=== PATIENT | male | born 1945 | race Caucasian/White ===

== ENCOUNTER → 2020-10-01 | Outpatient (CLI) | payer MEDICARE, OTHER ==
--- NOTE | 2020-10-01 13:24 | RADIOLOGY REPORT (SQ) ---
EXAM DESCRIPTION: BARIUM SWALLOW ESOPHAGUS IMAGES COMPLETED DATE/TIME: 10/01/2020 10:05 am REASON FOR STUDY: R13.10 DYSPHAGIA, UNSPECIFIED R13.10 DYSPHAGIA, UNSPECIFIED COMPARISON: None. TECHNIQUE: Under fluoroscopic guidance, patient ingested effervescent granules followed by thick and thin barium. Fluoroscopic spot images and routine radiographic images acquired and stored on PACS. 12 MM BARIUM TABLET GIVEN: Yes. No significant delay in passage. LIMITATIONS: None. FLUOROSCOPY TIME: FLUORO TIME: 1.6 MINUTES OF FLUOROSCOPY WAS USED. 12 images saved to PACS. FINDINGS: NEUROMUSCULAR COORDINATION OF SWALLOW: Normal. No aspiration. ESOPHAGEAL MOTILITY: Normal peristalsis. No esophageal spasm. ESOPHAGEAL MUCOSA: Normal mucosa without masses or ulceration. GASTRO-ESOPHAGEAL JUNCTION: Moderate size sliding hiatal hernia with free-flowing gastroesophageal re flux seen. Narrowing of the GE junction does delay passage of the 12 mm barium tablet for approximat marquez 2 minutes. NON-GI TRACT STRUCTURES: No significant finding. OTHER: No other significant finding. IMPRESSION: MODERATE SIZE HIATAL HERNIA WITH FREE-FLOWING GASTROESOPHAGEAL REFLUX. NARROWING OF THE GE JUNCTION DOES DELAY PASSAGE OF THE BARIUM TABLET. ENDOSCOPY IS RECOMMENDED FOR FURTHER EVALUATIO N OF THE DISTAL ESOPHAGEAL STRICTURE. RECOMMENDATION: Upper endoscopy COMMENT: Quality ID [id number]: Final reports for procedures using fluoroscopy that document radiation exp osure indices, or exposure time and number of fluorographic images (if radiation exposure indices are not available) TECHNICAL DOCUMENTATION: JOB ID: [id number] 2010 [employer]- All Rights Reserved Reading location - IP/workstation name: [email or web address] [id number]
--- OUTSIDE RECORDS SUMMARY | 2020-10-02 18:23 | XMS REPORT ---
:1945 Author Organization [facility] Address [facility] [place] [facility] [place] [address] [place] [address] Care Team Providers Name Role Phone MAURA RAMIREZ Primary Care Physician Unavailable LINA SWIFT Attending Clinician Unavailable Allergies, Adverse Reactions, Alerts Allergy Allergy Status Severity Reaction(s) Onset Inactive Treating C omments Name Type Date Date Clinician Adhesive Propensity Active Rash [place] tape & Tape-Silic to adverse 05-22 EK G leads ones reactions 00:00: (needs to drug 00 hypoalle rge eva ones ) Iodinated Propensity Active Severe Hives Hiv es even Contrast to adverse 07-13 with prep Media reactions 00:00: to drug 00 Medications Ordered Filled Start Stop Current Ordering Indication Dosage Frequency Signature Comments Components Medication Medication Date Date Medication? Clinician (SIG) Name Name hydroCHLORO Yes 25mg QD Take 1 thiazide 6-03 tablet (25 (HYDRODIURI 00:00: mg total) L) 25 MG 00 by mouth tablet once daily simvastatin Yes 40mg QD Take 1 (ZOCOR) 40 6-03 tablet (40 MG tablet 00:00: mg total) 00 by mouth nightly potassium Yes 10meq QD Take 1 chloride 6-03 tablet (10 (KLOR-CON) 00:00: mEq total) 10 MEQ ER 00 by mouth tablet once daily carvediloL Yes TAKE ONE (COREG) 6-02 TABLET BY 6.25 MG 00:00: MOUTH tablet 00 TWICE DAILY WITH MEALS potassium 2019- No 10meq QD Take 1 chloride 9-17 06-03 tablet (10 (KLOR-CON) 00:00: 00:00 mEq total) 10 MEQ ER 00 :00 by mouth tablet once daily simvastatin 2019- No 40mg QD Take 1 (ZOCOR) 40 5-08 06-03 tablet (40 MG tablet 00:00: 00:00 mg total) 00 :00 by mouth nightly hydroCHLORO No 25mg QD Take 1 thiazide 03-28-03 tablet (25 (HYDRODIURI 00:00: 00:00 mg total) L) 25 MG 00 :00 by mouth tablet once daily carvedilol No 6.25mg Take 1 (COREG) 03-28-02 tablet 6.25 MG 00:00: 00:00 (6.25 mg tablet 00 :00 total) by mouth 2 (two) times daily with meals HYDROcodone No Take one -acetaminop 6-13 05-04 tablet by hen (NORCO) 00:00: 00:00 mouth 5-325 mg 00 :00 every 4-6 tablet hours as needed for pain simvastatin No 40mg QD Take 1 (ZOCOR) 40 4-30 04-30 tablet (40 MG tablet 00:00: 23:59 mg total) 00 :00 by mouth nightly. hydrochloro No 25mg QD Take 1 thiazide -30 04-30 tablet (25 (HYDRODIURI 00:00: 23:59 mg total) L) 25 MG 00 :00 by mouth tablet daily. cloNIDine No .2mg Q.5D Take 1 (CATAPRES) - 06-05 tablet 0.2 MG 00:00: 00:00 (0.2 mg tablet 00 :00 total) by mouth 2 (two) times daily. metoprolol No 50mg Q.5D Take 1 tartrate 04-13 06-05 tablet (50 (LOPRESSOR) 00:00: 00:00 mg total) 50 MG 00 :00 by mouth 2 tablet (two) times daily. quinapril No 40mg Q.5D Take 1 (ACCUPRIL) 5-24 06-05 tablet (40 40 MG 00:00: 00:00 mg total) tablet 00 :00 by mouth 2 (two) times daily. simvastatin No Take I tab (ZOCOR) 40 5-24 06-05 by mouth MG tablet 00:00: 00:00 in the pm 00 :00 cholecalcif Yes 1000U QD Take 1,000 sunitha 5-30 Units by (VITAMIN 00:00: mouth D3) 1,000 00 every unit morning. capsule ranitidine No 150mg Q24H Take 150 (ZANTAC) 5-30 05-04 mg by 150 MG 00:00: 00:00 mouth capsule 00 :00 daily as needed. ranitidine 2013- No 1{capsu Q24H 1 cap by (ZANTAC) 04-19 le} mouth 150 MG 00:00: 00:00 daily as capsule 00 :00 needed cholecalcif No 1{capsu QD 1 cap by sunitha 04-19- le} mouth (VITAMIN 00:00: 00:00 daily D3) 1,000 00 :00 unit capsule cloNIDine No 1{tbl} Q.5D 1 tab by (CATAPRES) 530 05-24 mouth 2 0.2 MG 00:00: 00:00 times a tablet 00 :00 day metoprolol No 1{tbl} Q.5D 1 tab by (LOPRESSOR) 30 05-24 mouth 2 50 MG 00:00: 00:00 times a tablet 00 :00 day quinapril 2012- No 1{tbl} Q.5D 1 tab by (ACCUPRIL) 530 05-24 mouth 2 40 MG 00:00: 00:00 times a tablet 00 :00 day simvastatin 2012- No 1 tab by (ZOCOR) 40 530 05-24 mouth in MG tablet 00:00: 00:00 the p.m. 00 :00 aspirin 81 2012- No 1{tbl} Q.5D 1 tab by mg tablet 12-1629 mouth 2 00:00: 00:00 times a 00 :00 day aspirin 325 Yes 325mg QD Take 325 MG EC mg by tablet mouth every morning. diphenhydrA Yes 25mg QD Take 25 mg MINE by mouth (BENADRYL every ALLERGY) 25 evening. mg tablet metoprolol No 25mg Q.5D Take 25 mg tartrate 05-04 by mouth 2 (LOPRESSOR) 00:00 (two) 50 MG :00 times tablet daily. Problems Condition Condition Condition Status Onset Resolution Last Treatin g Comments Name Details Category Date Date Treatment Clinician Date S/P S/P 21154739 Active 2017-112018-10-06 ascending ascending 12-06 15:34:57 aortic aortic 00:00: aneurysm aneurysm 00 repair repair S/P AVR S/P AVR [id number] Active 2017-112018-10-0612-06 15:35:11 00:00: 00 Screening Screening [id number] Active 2018-03-27 Overview: for for 03-27 22:55:45 A. 2008 ischemic ischemic 00:00: Cardia c heart heart 00 cath: disease disease normal (IHD) (IHD) cors Complex Complex [id number] Active 2017-05-03 tear of tear of - 17:06:23 medial medial 00:00: meniscus of meniscus of 00 right knee right knee as current as current injury injury Acute pain Acute pain [id number] Active 2017-04-11 of right of right 04-11 19:01:01 knee knee 00:00: 00 Knee Knee [id number] Active 2017-04-11 effusion, effusion, 04-11 19:01:17 right right 00:00: 00 Polycythemi Polycythemi [id number] Active 2017-03-28 a a 03-27 02:48:05 00:00: 00 Sinus Sinus 45129461 Active 2018-03-27 bradycardia bradycardia 03-25 22:54:31 00:00: 00 Screening Screening [id number] Active 2015-03-24 for for 03-24 17:30:13 prostate prostate 00:00: cancer cancer 00 Nephrolithi Nephrolithi 51127143 Active 2012-112014-11-08 asis asis 2-20 21:34:50 00:00: 00 Hypercalciu Hypercalciu [id number] Active 2012-112014-11-08 Overview: néstor néstor 2-20 21:34:36 Type 2 00:00: 00 Hyperoxalur Hyperoxalur 83088536 Active 2012-112014-11-08 ia ia 2-20 21:34:46 00:00: 00 TIA TIA 56242603 Active 2012-112020-03-24 Over view: (transient (transient 12-02 13:30:53 A . ischemic ischemic 00:00: 07/2013 : attack) attack) 00 TIA B. 09/2013: Subacute stroke o f the left hodges radiata consiste n t with cardioem b olic ischemic events C . MRI Neck : No evidence of hemodyna m ically signific a nt stenosis or vascular occlusio n . D. Increase d ASA to 325 mg E . 2019 No recurren c e on ASA 325mg Aortic Aortic 27420421 Active sinus of sinus of 08-17 Valsalva Valsalva 00:00: aneurysm aneurysm 00 from left from left coronary coronary sinus sinus Hyperlipide Hyperlipide 33804299 Active 2020-03-24 Overview: inocencia, mixed inocencia, mixed 04-25 13:33:20 A . 00:00: 03/2012: 00 TC 89, T g 60, HDL 34, LDL 43 on Simvasta t in 40mgm daily B. 08/2013: TC 107, Tg 90, HDL 36, LDL 53 o n Simvasta t in 40mgm daily C. 03/2015: TC 115, Tg 79, HDL 43, LDL 56 o n Simvasta t in 40mg D. 2015 TC112, T G 60, HDL 38, LDL 62 - Zocor 40mg E. 2017 TC 105, TG 66, HDL 40, LDL 52 - Zocor 40mg Erectile Erectile [id number] Active 2013-04-24 dysfunction dysfunction 04-24 14:28:03 00:00: 00 Aortic Aortic 36616594 Active 2020-03-24 Over view: valve valve 04-24 13:22:33 a. disease disease 00:00: 05/2008, TTE demonstr a ting severe aortic regurg. b. 05/30/20 0 8, cardiac catheter i zation revealin g severe aortic regurgit a tion, grade 4+ , normal coronary arteries . c. 06/13/20 0 8, statu s post bio Bentall procedur e with #27 mm Medtroni c free style porcine fold vickie t and transver s e aortic arch graft with 24 mm Dacro n graft, done by Dr. Pulido. d. 04/03/20 1 0, cardiova s cular MRI: LVE F 60%. Bioprost h etic aortic valve, well-sea t ed and function a l. Aorti c graft stable without leak or dissecti o n. Skin multiple liver cysts noted, further characte r ization recommen d ed by radiolog y Andrez e. Thoracic MRA: No evidence of aorti c root graft leak, th e aorta is displace d posterio r ly due t o a large hiatal hernia. There is no evidence of dissecti o n. Incident a l findin g of multiple lesions in the liver which appear a s cysts. Further characte r ization recommen d ed. f. 03/2011 cardiova s cular MRI: EF 60%, mil d biatrial enlargem e nt. Stable bioprost h etic valve. Again, noted multiple cystic liver lesions. g. 04/07/12 Echocard i ogram: E F greater than 55% , mild LVH , grade 1 diastoli c dysfunct i on, mildly enlarged left atrium, mildly enlarged right ventricl e and righ t atrium, trivial pericard i al effusion , trivial AR with 1.5 msec peak velocity , 9 mm Hg peak gradient , 4 mm Hg mean gradient . H. 3 : Cardia c MRI: EF 55%. LA upper limit of normal. Moderate LVH. Aortic Valve trivial regurgit a tion. Peak velocity 1.5 m/s. I. 10/15/13 : Redo Bentall procedur e of aorti c root followin g structur a l deterior a tion of Freestyl e porcine root J. 09/2018 MRI: EF 60%. Trivial AR. No infarct or infiltra t e. No change i n the thoracic aorta status post red o Bentall and hemiarch repair. Ascending Ascending [id number] Active 2019-03-28 Overview: aortic aortic 04-24 13:43:48 A. Stat us aneurysm aneurysm 00:00: post 00 transver s e aortic arch graft, 06/13/20 0 8, by Dr Andrez Pulido. B. 3 : Cardia c MRI: Aneurysm a l segmen t measures -1.7 x 0.8 x 1. 5 cm in size, increase d from prior ( 0.4 x 0. 4 x 0.7 cm ) C. 10/15/13 : Redo Bentall procedur e of aorti c root followin g structur a l deterior a tion of Freestyl e porcine root D. 09/2018 MRI: EF 60%. Trivial AR. No infarct or infiltra t e. prox desc aorta 4 cm. No change i n the thoracic aorta status post red o Bentall and hemiarch repair. Essential Essential [id number] Active 2016-03-16 hypertensio hypertensio 04-24 16:48:29 n n 00:00: 00 GERD GERD [id number] Active 2016-03-22 (gastroesop (gastroesop 04-24 21:28:59 hageal hageal 00:00: reflux reflux 00 disease) disease) Hiatal Hiatal 66350642 Active 2013-04-24 Over view: hernia hernia 04-24 14:27:33 a. 00:00: 9 00 status post laparosc o pic repair o f paraesop h ageal hernia, by fundopli c ation gastropa t hy and esophage a l gastrosc o py. Erectile Erectile [id number] Inactiv 2013-04-24 dysfunction dysfunction e 04-24 14:28:03 00:00: 00 Liver cyst Liver cyst 78249380 Active 2019-03-28 Overview: 04-24 13:44:13 a. Live r 00:00: cyst 00 noted on cardiova s cular MRI. Patient seen in the live r clinic and evaluate d by Dr. Clement. No further treatmen t necessar y at this time. B. Cardiac MRI. Liver cysts stable. Largest 13 cm. Pulmonary Pulmonary 63765086 Active 2013-04-24 Overview: nodule nodule 04-24 14:31:57 a. 00:00: 01/01/11 : 00 Two well-def i chris yuridia d left lower lobe nodules concerni n g for metastat i c disease. Hiatal hernia incident a lly noted. Kidney Kidney [id number] Active 2013-04-24 Over view: cancer cancer 04-24 14:34:12 a. 00:00: 07/09/10 00 Status post right partial nephrect o my. b. 09/17/11 Left ureteros c opy with dilatati o n, stent placemen t . c. Lef t ureteros c opy with laser lithotri p sy. Voiding Voiding [id number] Resolve 2018-03-27 difficulty difficulty d 5-04 00:00:00 00:00: 00 S/P S/P [id number] Resolve 2016-03-22 ascending ascending d 08-16 00:00:00 aortic aortic 00:00: replacement replacement 00 Procedures This patient has no known procedures. Results This patient has no known results. Assessments Condition Name Status Diagnosis Date Treating Clinici an Essential hypertension Unknown Hyperlipidemia, mixed Unknown Ascending aortic aneurysm (CMS-HCC) Unknown S/P ascending aortic aneurysm repair Unknown TIA (transient ischemic attack) Unknown Screening for ischemic heart disease (IHD) Unknown SOB (shortness of breath) Unknown Aortic valve disease Unknown Aortic valve disease Unknown Ascending aortic aneurysm (CMS-HCC) Unknown Essential hypertension Unknown Hyperlipidemia, mixed Unknown TIA (transient ischemic attack) Unknown Screening for ischemic heart disease (IHD) Unknown Ascending aortic aneurysm (CMS-HCC) Unknown Encounters Start End Encounter Admission Attending Care Care Encounter Date/Time Date/Time Type Type Clinicians Facility Department ID 2020-09-25 2020-09-25 Outpatient [facility] [id number] 00:00:00 00:00:00 2020-04-21 2020-04-21 Outpatient [facility] [id number] 00:00:00 00:00:00 2020-03-24 2020-03-24 Outpatient NEO CHRISTOPHER [facility] [id number] 07:28:59 07:28:59 2020-03-24 2020-03-24 Outpatient [facility] [id number] 00:00:00 00:00:00 2015-01-22 2015-01-22 Outpatient [facility] [id number] 09:00:00 09:30:00 2013-04-13 2013-04-13 Outpatient [facility] [id number] 00:00:00 00:00:00 Immunizations Ordered Immunization Filled Immunization Date Status Commen ts Refusal Reason Name Name Influenza, IM 2015-09-08 Completed unspecified 00:00:00 Tdap 2015-08-22 Completed 00:00:00 Pneumococcal 2015-03-24 Completed Polysaccharide 00:00:00 23-Valent (Pneumovax-23) Pneumococcal 2015-03-24 Completed Polysaccharide 00:00:00 23-Valent (Pneumovax-23) Influenza, IM 2014-09-09 Completed unspecified 00:00:00 Influenza TIV (IM) 2013-09-18 Completed 00:00:00 Influenza, IM 2013-08-30 Completed unspecified 00:00:00 Plan of Treatment Planned Activity Planned Date Details Comments Future Scheduled Test [code = ] Future Scheduled Test [code = ] Future Scheduled Test [code = ] Future Scheduled Test [code = ] Future Scheduled Test [code = ] Future Scheduled Test [code = ] Future Scheduled Test [code = ] Future Scheduled Test [code = ] Future Scheduled Test [code = ] Future Scheduled Test [code = ] Future Scheduled Test [code = ] Future Scheduled Test [code = ] Future Scheduled Test [code = ] Future Scheduled Test [code = ] Future Scheduled Test [code = ] Future Scheduled Test [code = ] Future Scheduled Test [code = ] Future Scheduled Test [code = ] Future Scheduled Test [code = ] Future Scheduled Test [code = ] Future Scheduled Test [code = ] Future Appointment 2020-10-27 11:20:00 Future Appointment 2020-10-27 10:00:00 Christopher Swift MD, [address] [place] [address] Future Appointment 2020-10-03 13:30:00 Ry Pulido MD, [address] [facility] [address], [place] [address] Future Appointment 2020-10-03 12:00:00 Future Appointment 2020-10-03 11:20:00 Christopher Swift MD, [address], [place] [address] Future Appointment 2020-10-03 10:00:00 Christopher Swift MD, [place] [address] Social History Social Habit Start Date Stop Date Comments Tobacco use and exposure 2020-03-24 00:00:00 2020-03-24 00:00:00 Alcohol intake 2020-03-24 00:00:00 2020-03-24 00:00:00 Smoking Status Start Date Stop Date Never smoker 2020-03-24 00:00:00 Vital Signs Vital Name Observation Time Observation Value Comments Systolic blood pressure 2020-03-24 09:21:00 143 mm[Hg] Diastolic blood pressure 2020-03-24 09:21:00 76 mm[Hg] Heart rate 2020-03-24 09:21:00 66 /min
== END ==
LOC: RAD 09:18
PROVIDERS: ATTEND Physician Assistant
DX: R13.10 Dysphagia, unspecified (principal); K44.9 Diaphragmatic hernia without obstruction or gangrene; K21.9 Gastro-esophageal reflux disease without esophagitis; K22.2 Esophageal obstruction
CPT/HCPCS: 74220